=== PATIENT | female | born 1965 | race African-American/Black ===

== ENCOUNTER → 2016-12-12 | Outpatient (CLI) | payer BC, OTHER ==
--- NOTE | 2016-12-12 16:15 | KCIC ---
Examination: 3 views of the left knee HISTORY: History of left knee pain while walking up stairs for one month COMPARISON: None available FINDINGS: The alignment of the knee joint grossly appears unremarkable. There is no acute fracture or dislocation identified. Small hypodensity identified in the patella in the region of the patellar femoral compartment best visualized in the lateral view could be subchondral cyst or cartilage defect. Impression: Small hypodensity identified in the patella in the region of the patellar femoral compartment best visualized on the lateral view could be subchondral cyst or cartilage defect. MRI may be useful for further evaluation. Electronically signed by: Nate Ram MD (12/12/2016 4:12 PM) [id number]
== END | disposition home or self-care (01) ==
LOC: KCIC 15:07
PROVIDERS: ATTEND Family Medicine
DX: M25.562 Pain in left knee (principal); Y93.01 Activity, walking, marching and hiking; Y92.89 Other specified places as the place of occurrence of the external cause; Y99.8 Other external cause status
CPT/HCPCS: 73562

== ENCOUNTER → 2017-10-08 | Outpatient (CLI) | payer BC, OTHER | END | disposition home or self-care (01) | LOC: ECHO 12:06 | DX: R06.02 Shortness of breath (principal) | CPT/HCPCS: 93017; 93350 ==

== ENCOUNTER → 2019-01-20 | Outpatient (CLI) | payer BC, OTHER ==
--- NOTE | 2019-01-20 16:39 | KCIC ---
Bilateral digital screening mammograms: Reason for examination: Routine screening. Comparison is made to previous studies dated 07/18/2015 and 06/02/2014. Interpretation was made with the benefit of CAD. The skin and nipples show no abnormalities. No abnormal axillary lymph nodes are seen. The breast parenchyma is heterogeneously dense. (Breast density: Category C.) There continues to be some asymmetric parenchyma in the upper outer quadrant of the left breast which is unchanged. There are no new dominant masses, suspicious calcifications or architectural distortion. Impression: No evidence of malignancy. Recommend routine screening. Your patient's mammogram demonstrates that she has dense breast tissue (breast density category C or D), which could hide abnormalities, and if she has other risk factors for breast cancer that have been identified, she might benefit from supplemental screening tests that may be suggested by you as her ordering physician. Dense breast tissue, in and of itself, is a relatively common condition. Therefore, this information is not provided to cause undue concern, but rather to raise your awareness and to promote discussion with your patient regarding the presence of other risk factors, in addition to dense breast tissue. Your patient's mammography results will be sent to her. BI-RAD Category 2: Benign. "Our facility is accredited by the [employer] Mammography Program." This patient's information has been entered into a reminder system for the patient to be notified with the results of her examination and a target date for the next mammogram. Electronically signed by: Catalina Luna MD (01/20/2019 4:36 PM) [id number]
== END | disposition home or self-care (01) ==
LOC: KCIC MAMMO 13:51
PROVIDERS: ATTEND Family Medicine
DX: Z12.31 Encounter for screening mammogram for malignant neoplasm of breast (principal)
CPT/HCPCS: 77067

== ENCOUNTER → 2020-04-11 | Outpatient (CLI) | payer BC ==
[~2020-04-11] MED LIST: IOHEXOL 240 MG/ML 50ML VIAL. PO ONE; IOHEXOL 300 MG/ML 100ML VIAL. IV ONE
--- NOTE | 2020-04-11 14:03 | KCIC ---
EXAM: Abdomen and pelvis CT with intravenous contrast. HISTORY: Pain. TECHNIQUE: Computed tomographic images of the abdomen and pelvis were obtained following the administ ration of intravenous contrast. Multiplanar reformatting was performed. *One or more of the following individualized dose reduction techniques were utilized for this examina tion: 1. Automated exposure control. 2. Adjustment of the mA and/or kV according to patient size. 3. Use of iterative reconstruction technique. COMPARISON: None. FINDINGS: Evaluation of the lower thorax demonstrates no infiltrate or pleural effusion. The heart is normal in size. No suspicious hepatic lesion is seen. The gallbladder, pancreas, spleen and stomach are unremarkable. There is a 2.2 cm left adrenal nodule. There is mild superior right renal cortical thinning likely due to scarring. There is no appendicitis. There is no bowel obstruction. There is a moderate amount of colonic stool. The urinary bladder, uterus and adnexal regions are unremarkable. The aorta is normal in caliber. Th ere is no lymphadenopathy. There is no suspicious osseous lesion. IMPRESSION: 1. No acute abdominal or pelvic finding. 2. 2.2 cm left adrenal nodule. This can be better assessed with an adrenal protocol CT or MRI. Electronically signed by: Olimpia Ga MD (04/11/2020 2:01 PM) [id number]
== END ==
LOC: KCIC CT 10:30
PROVIDERS: ATTEND Nurse Practitioner Family
DX: E27.8 Other specified disorders of adrenal gland (principal); R14.0 Abdominal distension (gaseous); R10.31 Right lower quadrant pain
CPT/HCPCS: 74177; Q9966; Q9967

== ENCOUNTER → 2020-04-20 | Outpatient (CLI) | payer BC ==
[~2020-04-20] MED LIST changes: +CONTRAST GIVEN. MC PRN; -IOHEXOL 240 MG/ML 50ML VIAL. PO ONE
--- NOTE | 2020-04-20 17:08 | KCIC ---
Exam: CT abdomen before and after intravenous contrast Indication: Adrenal abnormality on CT Comparison: CT abdomen and pelvis 04/11/2020 Technique: Helical CT imaging performed of the abdomen performed before and after administration of 1 00 mL Omnipaque 300 intravenous contrast per adrenal mass protocol in noncontrast, portal venous, and 15 minute delayed phases. Sagittal and coronal reformats were obtained. One or more of the following individualized dose reduction techniques were utilized for this examinat ion: 1. Automated exposure control 2. Adjustment of the mA and/or kV according to patient size 3. Use of iterative reconstruction technique. Findings: Lower chest: Normal. Liver: Normal. Gallbladder/Biliary Tree: Normal. Pancreas: Normal. Spleen: Normal. Adrenal Glands: The left adrenal mass measuring approximately 2.2 x 1.6 cm has Hounsfield units of 31 on noncontrast, and 98, and portal venous phase, and 51 on 15 minute delayed phase series. Absolute washout is 70 percent and relative washout is 48 percent, consistent with an adrenal adenoma. The rig ht adrenal gland is normal. Kidneys and proximal ureters: Kidneys and proximal ureters are normal. Stomach, and visualized bowel: Unremarkable. Vasculature: Abdominal aorta is normal in caliber. Lymph Nodes: No lymphadenopathy. Peritoneum and retroperitoneum: [place] appearance of the mesentery with prominent lymph nodes is uncha nged and nonspecific. No free fluid or free air. Bones: No acute osseous abnormality. Impression: Enhancement characteristics of the left adrenal mass is consistent with a benign adrenal adenoma. Electronically signed by: Susanna Bermudez MD (04/20/2020 5:06 PM) [id number]
== END ==
LOC: KCIC CT 09:42
PROVIDERS: ATTEND Nurse Practitioner Family
DX: E27.8 Other specified disorders of adrenal gland (principal)
CPT/HCPCS: 74170; Q9967

== ENCOUNTER → 2020-11-05 | Outpatient (CLI) | payer BC ==
--- NOTE | 2020-11-06 14:23 | RAD ---
Study: CT of the abdomen adrenal mass protocol 11/05/2020 Comparison: CT of the abdomen 04/20/2020 Clinical Indication: Adrenal mass Technique: Contiguous axial images are obtained from the apex of the diaphragm to the pelvic floor. I mages are obtained in the precontrast, portal venous and 15 minute delay phase(s). Sagittal and lucrecia nal reformations are evaluated. Dose Reduction: One or more of the following individualized dose reduction techniques were utilized f or this examination: 1. Automated exposure control, 2. Adjustment of the mA and/or kV according to p atient size, 3. Use of iterative reconstruction technique FINDINGS: Evaluation of the solid organ parenchyma is limited somewhat by phase of IV Contrast. Evaluation of the hollow enteric structures is somewhat limited by Lack of oral contrast. Lung bases: Grossly unremarkable Lower Mediastinum: Grossly unremarkable Liver: Normal in size and contour with no focal parenchymal abnormalities. Biliary: No intra or extra hepatic biliary ductal dilatation. Gallbladder: Partially fluid distended and grossly unremarkable with no radiographically discernible stones. No pericholecystic fluid. Pancreas: Grossly unremarkable Spleen: Grossly unremarkable Adrenals: The left adrenal nodule is stable in size measuring 2.2 x 1.6 cm. On noncontrast image has a Hounsfield unit of 44, portal venous phase 91 Hounsfield units, and on delayed images 53 Hounsfield units. This is an absolute washout of 81 percent and a relative washout of 42 percent, consistent wi th an adrenal adenoma. The right adrenal gland is normal. Kidneys: Free of any hydronephrosis, nephrolithiasis or focal parenchymal abnormality. Gastroduodenum and visualized bowel:Grossly unremarkable. Peritoneum and retroperitoneum: Similar hazy appearance to the root of mesentery which is nonspecific IMPRESSION: No significant interval change in left adrenal nodule with enhancement characteristics consistent wit h a benign adrenal adenoma. Electronically signed by: Pradeep Urbano (11/06/2020 2:21 PM) [id number]
== END ==
LOC: CT 15:53
PROVIDERS: ATTEND Internal Medicine Endocrinology, Diabetes & Metabolism
DX: E27.8 Other specified disorders of adrenal gland (principal)
CPT/HCPCS: 74170; Q9967